=== PATIENT | female | born 1950 | race Caucasian/White ===

== ENCOUNTER 2020-07-07 07:55 | Outpatient (CLI) | payer MEDICARE, SELFPAY ==
--- NOTE | ~2020-07-07 | MM_ITS ---
EXAMINATION: MM screening arelis BI w nacho HISTORY: Screening mammogram TECHNIQUE: Craniocaudal and mediolateral oblique 3-D tomosynthesis images were obtained and synthetic 2-D images were generated. CAD analysis was submitted and interpreted. COMPARISON: 07/06/2019, 06/30/2018, 07/01/2017 bilateral digital screening mammogram examinations BREAST PARENCHYMAL COMPOSITION: There are scattered areas of fibroglandular density. FINDINGS: New opacity is suggested posteriorly in the outer right breast (craniocaudal Tomosynthesis image 29/72). Questionable new opacity in the very posterior mid to upper left breast on MLO view, at posterior mar gin of image. IMPRESSION: 1. Bilateral mammographic asymmetries 2. Bilateral diagnostic mammography is recommended, with ultrasound if required BI-RADS Category 0: Incomplete: Needs additional imaging evaluation. Reviewed, dictated and finalized at location A.
== END 2020-07-07 07:56 | disposition home or self-care (01) ==
LOC: ANHIMG 08:00
PROVIDERS: PCP Physician Assistant; Visit Provider Internal Medicine
DX: Z12.31 Encounter for screening mammogram for malignant neoplasm of breast (principal)
CPT/HCPCS: 77063; 77067

== ENCOUNTER 2022-07-04 01:23 | Day surgery (SDC) | payer MEDICARE, SELFPAY ==
[2022-06-19 14:36] VITALS: BMI 23.3
--- NOTE | 2022-07-03 13:38 | PM.HPGS ---
History of Present Illness History of Present Illness Consent: Risks, benefits, and alternatives have been discussed and questions answered. Patient agrees to proceed with procedure. Chief complaint: positive cologuard Narrative: Edith Valladares is a 71 year old female Referred for colon cancer screening. Recent Cologuard test was positive. Review of Systems Review of Systems: All systems reviewed & are unremarkable except as noted in HPI and below PMFSH Surgical History Surgical History H/O right wrist surgery Family History Family History Mother Cerebrovascular accident, Onset Age: 89 Sibling Breast cancer Social History Social History Smoking status: Never smoker Second hand tobacco smoke exposure: No Smoking end date: 10/13/69 Alcohol intake: current Drinks per week: 5 Substance use: never Substance use type: does not use Living arrangements: alone Spiritual care concerns: No Meds Home Medications and Allergies Home Medications Medication Instructions Recorded Confirmed Type alendronate 70 mg tablet (Fosamax) 70 mg PO MONTHLY 05/10/20 06/19/22 History calcium carbonate 500 mg calcium 500 mg PO DAILY 05/10/20 06/19/22 History (1,250 mg) tablet cholecalciferol (vitamin D3) 25 25 mcg PO DAILY 05/16/20 06/19/22 History mcg (1,000 unit) capsule flaxseed oil 1,000 mg capsule 1,000 mg PO DAILY 05/17/21 06/19/22 History atorvastatin 10 mg tablet 10 mg PO DAILY #90 tabs 04/16/22 06/19/22 Rx loratadine 10 mg tablet (Claritin) 10 mg PO DAILY 06/19/22 06/19/22 History Allergies Allergy/AdvReac Type Severity Reaction Status Date / Time latex Allergy Unknown Rash Verified 07/03/22 13:39 tetanus and diphtheria AdvReac Unknown Vomiting Verified 07/03/22 13:39 toxoids tetanus immune globulin AdvReac Unknown Vomiting Verified 07/03/22 13:39 Exam Resp: Auscultation: clear to auscultation bilaterally Cardio: Rate: regular rate Rhythm: regular rhythm GI: GI Palp: Yes Soft to palpation and No Tenderness to palpation present (GI) Assessment and Plan Assessment and plan (1) Colon cancer screening: Code(s): Z12.11 - Encounter for screening for malignant neoplasm of colon Status: Acute Assessment and Plan: Colonoscopy with possible biopsy or polypectomy or cautery or injection of substances.
[2022-07-04 06:59] VITALS: BP 141/94; PULSE 111; RESP 17; TEMP 36.7; O2SAT 100
[2022-07-04] MEDS: LACTATED RINGERS 1,000 ML 150 ML IV CONT (07:05)
--- NOTE | 2022-07-04 07:45 | P.PNAN_ITS ---
Anes - Initial Pre Proc Eval Procedure: Operation Date: 07/04/22 08:15 Proposed Procedures p Colonoscopy - Josue Elaine MD Date/Time: 07/04/22 07:45 Surgeon: Josue Elaine MD Pre Op Diagnosis: positive cologuard Patient Data Age: 71 Gender: F Height: 1.66 m Weight: 64.5 kg Last Vital Signs Temp 98.1 F 07/04/22 06:59 Pulse 111 H 07/04/22 06:59 Resp 17 07/04/22 06:59 BP 141/94 H 07/04/22 06:59 Pulse Ox 100 07/04/22 06:59 O2 Del Method Room Air 07/04/22 06:59 Allergies Allergy/AdvReac Type Severity Reaction Status Date / Time latex Allergy Unknown Rash Verified 07/03/22 13:39 tetanus and diphtheria AdvReac Unknown Vomiting Verified 07/03/22 13:39 toxoids tetanus immune globulin AdvReac Unknown Vomiting Verified 07/03/22 13:39 Home Medications Medication Instructions Recorded Confirmed Type alendronate 70 mg tablet (Fosamax) 70 mg PO MONTHLY 05/10/20 06/19/22 History calcium carbonate 500 mg calcium 500 mg PO DAILY 05/10/20 06/19/22 History (1,250 mg) tablet cholecalciferol (vitamin D3) 25 25 mcg PO DAILY 05/16/20 06/19/22 History mcg (1,000 unit) capsule flaxseed oil 1,000 mg capsule 1,000 mg PO DAILY 05/17/21 06/19/22 History atorvastatin 10 mg tablet 10 mg PO DAILY #90 tabs 04/16/22 06/19/22 Rx loratadine 10 mg tablet (Claritin) 10 mg PO DAILY 06/19/22 06/19/22 History Patient hx anesthesia problems: none Family hx anesthesia problems: none Results Review: All pre-operative results and documents have been reviewed as part of the pre- operative evaluation. [facility] Surgical History Surgical History H/O right wrist surgery Family History Family History Mother Cerebrovascular accident, Onset Age: 89 Sibling Breast cancer Social History Social History Smoking status: Never smoker Second hand tobacco smoke exposure: No Smoking end date: 10/13/69 Alcohol intake: current Drinks per week: 5 Substance use: never Substance use type: does not use Living arrangements: alone Spiritual care concerns: No Anes - Eval Final PreProcedure Day of Procedure 07/04/22 07:45 Patient weight: normal Heart: regular rate and rhythm Lungs: clear to auscultation Airway: Mallampati scale class II Neurological: alert and oriented Last oral intake: >/= 8 hours ASA classification: II Emergent: no Anesthetic plan: proceed Anesthesia type and monitoring: general GIVS and standard monitoring Results Review: All pre-operative results and documents have been reviewed as part of the pre- operative evaluation. Informed Consent: The patient's anesthetic plan and its attendant risks and benefits were discussed with the patient/family/POA. Questions were solicited and answers provided to the satisfaction of the patient/family/POA.
[2022-07-04 08:33] VITALS: BP 102/53; PULSE 91; RESP 20; O2SAT 100
[2022-07-04 08:43] VITALS: BP 102/53; PULSE 81; RESP 21; O2SAT 100
[2022-07-04 08:53] VITALS: BP 131/62; PULSE 76; RESP 21; O2SAT 100
== END 2022-07-04 08:59 | disposition home or self-care (01) ==
PROVIDERS: PCP Physician Assistant; Visit Provider Internal Medicine Gastroenterology
PROC: 0DJD8ZZ Inspection of Lower Intestinal Tract, Via Natural or Artificial Opening Endoscopic (ICD-10-PCS; CPT 45378; principal; 2022-07-04 08:15)
DX: Z12.11 Encounter for screening for malignant neoplasm of colon (principal); D12.4 Benign neoplasm of descending colon; K62.1 Rectal polyp; R19.5 Other fecal abnormalities; K57.30 Diverticulosis of large intestine without perforation or abscess without bleeding
CPT/HCPCS: 45385; 45380; 88305; J2704; J7120

== ENCOUNTER 2023-11-14 07:50 | Outpatient (CLI) | payer MEDICARE, OTHER, SELFPAY ==
--- NOTE | 2023-11-14 08:07 | ECG_ITS ---
Measurements Intervals [place] Rate: 94 P: 51 [place]: 161 QRS: 7 QRSD: 90 T: 38 QT: 373 QTc: 467 Interpretive Statements SINUS RHYTHM NORMAL ELECTROCARDIOGRAM NO PREVIOUS ECG AVAILABLE FOR COMPARISON Electronically Signed On 11-14-2023 13:49:53 [employer] by Tao Wilkerson M.D.
== END 2023-11-14 07:51 | disposition home or self-care (01) ==
LOC: ANHSURGERY 07:58
PROVIDERS: PCP Physician Assistant; Visit Provider Urology
DX: E78.5 Hyperlipidemia, unspecified (principal); Z01.818 Encounter for other preprocedural examination
CPT/HCPCS: 93005

== ENCOUNTER 2023-11-21 01:14 | Day surgery (SDC) | payer MEDICARE, SELFPAY ==
[2023-11-11 11:48] VITALS: BMI 26.5
--- NOTE | 2023-11-11 11:57 | PC.NURSE ---
PRE-OP INSTRUCTIONS, PLEASE READ CAREFULLY Report to the Outpatient Waiting Room, entrance under the green pavilion located off [facility], at time _0600_ on date _11/21/23_. Planned Procedure Time: _0800_. Time changes happen often and if your time is changed the preop area will call you the afternoon before. - You and your visitor will be asked to self-screen and do not enter if you have any COVID symptoms. - A mask is optional within the hospital at this time. Patients may have clear liquids (water, carbonated beverages, clear teas, apple juice) until 3 hours prior to surgery (0500 AM) with a maximum of 20 ounces. - No food from midnight until time of surgery Take the following medications with a SIP of water the morning of surgery: _NONE_ DO NOT STOP ANY OF YOUR OTHER PRESCRIPTION MEDICATIONS PRIOR TO SURGERY ?EXCEPT THE FOLLOWING Medications to discontinue per ANESTHESIA - _VITAMINS & SUPPLEMENTS 3 DAYS PRIOR TO SURGERY, Date to take last dose 11/17/23_ Please no make-up, nail divehi, hairspray, perfume, deodorant, or body powder the day of surgery. No jewelry (including any body piercings) or valuables the day of surgery, leave them at home. Please take a shower or bath the night before, or the morning of, surgery with an antibacterial soap. Wear comfortable, loose fitting clothing. - Jewelry must be removed prior to entering the operating room. Rings and piercings that are not removed may be cut off. - The hospital will not accept responsibility for valuables. - Please leave all valuables, including medications, at home the day of surgery. If you are going home after surgery, a licensed medical delivery driver must drive you home. - NO public transportation without another adult if you receive anesthesia. - We recommend that an adult stay with you for 24 hours following discharge. - We also recommend that you do not drive, make important decision, drink alcoholic beverages, or take any drugs that were not prescribed by your health care provider for at least 24 hours after your discharge time. Follow any additional instructions given to you from your surgeon. If you or anyone in your household have experienced Covid symptoms in the past week, please notify your surgeon or the nurse liaison at the phone number below for possible testing. Telephone instructions given to _PATIENT_and asked if any additional questions and then verbalized understanding. Patient advised to call surgeon office or pre surgery nurse liaison [phone] if any additional questions.
[2023-11-21] VITALS (8 sets, daily range): BP systolic 111–146; BP diastolic 59–77; PULSE 79–106; RESP 13–20; TEMP 36.3–36.7; O2SAT 99–100
--- NOTE | 2023-11-21 04:39 | PM.IMHP ---
H&P: HPI History of Present Illness Date/Time: 11/21/23 04:39 Chief Complaint: cystocele and occult stress incontinence Narrative: 73-year-old with a symptomatic cystocele. She had stress incontinence until her prolapse worsened. It is documented on urodynamics. She would like to proceed with a procedure to fix both issues Review of Systems Review of Systems: All systems reviewed & are unremarkable except as noted in HPI and below PMFSH Surgical History Surgical History H/O right wrist surgery Family History Family History Mother Cerebrovascular accident, Onset Age: 89 Sibling Breast cancer Social History Social History Smoking status: Former smoker Tobacco type: cigarettes Second hand tobacco smoke exposure: No Smoking end date: 10/13/69 Additional smoking assessment comments: STATES SMOKED IN COLLEGE Alcohol intake: current Drinks per week: 7 Alcohol use details: WINE Substance use: never Substance use type: does not use Current Housing: Decline to Answer Concerned About Future Housing: Decline to Answer Difficulty Paying Gas/Electric Bills: Decline to Answer Difficulty Paying for Meds: Decline to Answer Currently Unemployed: Decline to Answer Education: Decline to Answer Difficulty w/ Childcare or Family Care: Decline to Answer Living arrangements: alone Spiritual care concerns: No Meds Home Medications and Allergies Home Medications Medication Instructions Recorded Confirmed Type cholecalciferol (vitamin D3) 25 25 mcg PO DAILY 05/16/20 11/11/23 History mcg (1,000 unit) capsule multivitamin 1 tablet PO DAILY 05/23/23 11/11/23 History rosuvastatin 5 mg tablet 5 mg PO DAILY #90 tabs 08/14/23 11/11/23 Rx Bifidobacterium infantis 10.5 mg 21 mg PO DAILY 11/11/23 11/11/23 History (10 million cell) chewable tablet (Align) Super Beet 3,000 mg DAILY 11/11/23 11/11/23 History Allergies Allergy/AdvReac Type Severity Reaction Status Date / Time latex Allergy Unknown Rash Verified 11/11/23 11:45 tetanus and diphtheria AdvReac Unknown Vomiting Verified 11/11/23 11:45 toxoids tetanus immune globulin AdvReac Unknown Vomiting Verified 11/11/23 11:45 Exam Narrative: no acute distress normal breathing cystocele to introitus with appropriate apical support urethral mobility Assessment and Plan Assessment and plan (1) Cystocele with prolapse: Code(s): N81.4 - Uterovaginal prolapse, unspecified Status: Acute (2) KERA (stress urinary incontinence, female): Code(s): N39.3 - Stress incontinence (female) (male) Status: Acute Plan cystocele repair and concomitant urethral sling. Understands risks of bleeding, infection, damage to surrounding organs with the urinary tract, inability to resolve prolapse, recurrent prolapse, dyspareunia, postoperative voiding dysfunction including incontinence and retention, vaginal mesh extrusion, urinary tract mesh erosion, dyspareunia, obstructive voiding requiring secondary procedure, hip and leg pain. she agrees to proceed
--- NOTE | 2023-11-21 04:42 | WPDHPUPDATE1 ---
History and Physical Update Update Date/Time: 11/21/23 04:42 History and Physical has been reviewed, including an updated exam of the patient. There are NO changes in the patient's condition. Risks, benefits, and alternatives have been discussed and questions answered. Patient agrees to proceed with procedure.
[2023-11-21] MEDS: LACTATED RINGERS 1,000 ML 30 ML IV CONT ×2 (07:05→09:51)
--- NOTE | 2023-11-21 07:55 | WPDANESEPPF ---
Anes - Initial Pre Proc Eval Procedure: Operation Date: 11/21/23 08:00 Proposed Procedures p Cystocele Repair, - Tyrell Dale MD s Possible Urethral Sling - Tyrell Dale MD Date/Time: 11/21/23 07:55 Surgeon: Tyrell Dale MD Pre Op Diagnosis: midline cystocele, urge incontinence Patient Data Age: 73 Gender: F Height: 1.65 m Weight: 72.27 kg Allergies Allergy/AdvReac Type Severity Reaction Status Date / Time latex Allergy Unknown Rash Verified 11/21/23 07:01 tetanus and diphtheria AdvReac Unknown Vomiting Verified 11/21/23 07:01 toxoids tetanus immune globulin AdvReac Unknown Vomiting Verified 11/21/23 07:01 Home Medications Medication Instructions Recorded Confirmed Type cholecalciferol (vitamin D3) 25 25 mcg PO DAILY 05/16/20 11/21/23 History mcg (1,000 unit) capsule multivitamin 1 tablet PO DAILY 05/23/23 11/21/23 History rosuvastatin 5 mg tablet 5 mg PO DAILY #90 tabs 08/14/23 11/21/23 Rx Bifidobacterium infantis 10.5 mg 21 mg PO DAILY 11/11/23 11/21/23 History (10 million cell) chewable tablet (Align) Super Beet 3,000 mg DAILY 11/11/23 11/21/23 History hydrocodone 5 mg-acetaminophen 325 1 tablet PO Q6H PRN pain #20 tabs 11/21/23 Rx mg tablet Patient hx anesthesia problems: none Family hx anesthesia problems: none Results Review: All pre-operative results and documents have been reviewed as part of the pre-operative evaluation. [facility] Surgical History Surgical History H/O right wrist surgery Family History Family History Mother Cerebrovascular accident, Onset Age: 89 Sibling Breast cancer Social History Social History Smoking status: Former smoker Tobacco type: cigarettes Second hand tobacco smoke exposure: No Smoking end date: 10/13/69 Additional smoking assessment comments: STATES SMOKED IN COLLEGE Alcohol intake: current Drinks per week: 7 Alcohol use details: WINE Substance use: never Substance use type: does not use Current Housing: Decline to Answer Concerned About Future Housing: Decline to Answer Difficulty Paying Gas/Electric Bills: Decline to Answer Difficulty Paying for Meds: Decline to Answer Currently Unemployed: Decline to Answer Education: Decline to Answer Difficulty w/ Childcare or Family Care: Decline to Answer Living arrangements: alone Spiritual care concerns: No Anes - Eval Final PreProcedure Day of Procedure 11/21/23 07:55 Patient weight: normal Heart: regular rate and rhythm Lungs: clear to auscultation Airway: Mallampati scale class II Neurological: alert and oriented Last oral intake: >/= 8 hours ASA classification: III Emergent: no Anesthetic plan: proceed Anesthesia type and monitoring: general LMA and standard monitoring Results Review: All pre-operative results and documents have been reviewed as part of the pre-operative evaluation. Informed Consent: The patient's anesthetic plan and its attendant risks and benefits were discussed with the patient/family/POA. Questions were solicited and answers provided to the satisfaction of the patient/family/POA.
[2023-11-21] MEDS: ceFAZolin 2 GM/D5W 50 ML 2 GM/50 ML BAG IVPB (07:58)
[2023-11-21] MEDS: BUPIVACAINE/EPINEPHRINE 0.5% 30 ML VIAL INFILTRATE (08:13)
--- NOTE | 2023-11-21 08:51 | P.OP_ITS ---
Procedure Note - Detailed Date of Procedure 11/21/23 Pre-op Diagnosis midline cystocele, stress urinary incontinence Post-op Diagnosis Same Procedure Performed Cystocele repair mid urethral sling cystoscopy Surgeon Tyrell Dale MD Anesthesia General Indications This is a female with a cystocele and occult stress urinary incontinence. She desires surgical correction. She understands the risks of bleeding, infection, injury to the urinary tract, recurrence of prolapse, inability to fix her prolapse, damage to the bladder or surrounding organs, fistula formation, vaginal mesh extrusion, urinary tract mesh erosion, obstructive voiding requiring a secondary procedure, hip and leg pain, dyspareunia, inability to improve overactive bladder symptoms. She agrees to proceed. Description of Procedure She was correctly identified. Informed consent obtained. She was brought the operating room. She was given appropriate anesthesia. She was given appropriate perioperative antibiotics. A time-out performed. I placed a [place] retractor. I placed Murillo catheter. I grasped the cystocele with Allis clamps. She had extremely thin vaginal mucosa. I infiltrated subcutaneous tissues with a mixture of local anesthesia mix with epinephrine and saline. I made a midline vaginal incision. I dissected out laterally taking great care not to injure the vaginal wall or the bladder. Of note the tissues were quite thin with very little intervening tissue between the detrusor and the vaginal wall. I also dissected out to the apex. I took great care not to injure the bladder. Without help the dissection and performed a plication cystocele type repair. I used interrupted 0 Vicryl suture. I did this with interrupted sutures. This completed the cystocele repair. I trimmed excess vaginal mucosa. I closed the vaginal mucosa with a running 2-0 Vicryl suture. There was excellent reduction of the cystocele. She had reasonable apical prolapse. She had no rectocele. Again of note she had very thin vaginal tissues. I then turned my attention toward sling. I marked out the site of the inner thigh incisions. I anesthetized the skin and made those incisions. I anesthetized the anterior vaginal wall over the mid urethra. I made a 1 cm incision. I dissected out laterally taking great care not to injure the refilled vaginal wall. I performed cystoscopy at this time to confirm that there was no bladder or urethral violation. I passed the helical trocars. First on the left. Then on the right. I did this from the thigh incision towards the vaginal incision. The sling was connected to the trocars and brought out through the thigh incision. I tensioned the sling appropriately. I cut and the plastic sheaths. I then closed the incision with 2 0 Vicryl. On cystoscopy there is no tumors or surgical artifact. There is no surgical artifact or injury to the bladder urethra. No suture or mesh was seen. There is no tumors. there is mild trabeculations. Both ureters were seen to excrete clear yellow urine. There was no surgical artifact in the urethra. I cut the excess sling material. Close incisions with glue. She was awakened and transferred to the PACU in stable condition. Implants Urethral sling Estimated Blood Loss 10 Drains No Packing No Pathology None sent Complications No immediate complications Condition Stable Disposition PACU
[2023-11-21] MEDS: oxyCODONE HCL (*CRX) 5 MG TAB IR PO (09:31)
== END 2023-11-21 10:45 | disposition home or self-care (01) ==
PROVIDERS: PCP Physician Assistant; Visit Provider Urology
PROC: (CPT 57240; principal; 2023-11-21 08:00)
PROC: (CPT 57240; 2023-11-21 08:00)
DX: N81.11 Cystocele, midline (principal); N39.3 Stress incontinence (female) (male)
CPT/HCPCS: 57240; 57288; 93005; A9270; C1771; J0690; J2405; J2704; J3010; J7030; J7120

== ENCOUNTER 2024-01-29 13:36 | Outpatient (CLI) | payer MEDICARE, SELFPAY ==
[2024-01-29 13:53] LABS: Appearance Urine Clear (Clear); Bacteria Urine 4+ /hpf; Bilirubin Urine Negative (Negative); Blood Urine Negative (Negative); Color Urine Yellow (Yellow); Glucose Urine UA Negative (Negative); Ketones Urine Negative (Negative); Leukocyte Esterase Ur 2+ LEU/UL (Negative); Nitrate Urine Positive (Negative); Non Pathogenic Casts 0-2; Protein Urine Negative (Negative); RBC Urine 0-2 /hpf (0-2); Specific Grav Ur 1.012 (1.001-1.035); Squamous Epithelial Cell Urine Occasional /hpf (Few); Urobilinogen Urine 0.2 mg/dL (<2.0); WBC Urine 51-100 /hpf (0-3); pH Urine 7.5 (5.0-9.0)
[2024-01-29 14:02] LABS: Add Urine Microscopic? YES
== END 2024-01-29 13:37 | disposition home or self-care (01) ==
PROVIDERS: PCP Physician Assistant; Referring Provider Urology; Visit Provider Physician Assistant
DX: R30.0 Dysuria (principal)
CPT/HCPCS: 81001; 87077; 87086; 87088; 87186

== ENCOUNTER 2024-06-19 08:42 | Outpatient (CLI) | payer MEDICARE, SELFPAY ==
--- NOTE | ~2024-06-19 | DEXA_ITS ---
Bone Density Report Name: JULIANA MOSCOSO Age: 73 Sex: Female Ethnicity: White Date of : 1950 Indication: postmenopausal; screening for osteoporosis; parental hip fracture; height loss; history of glucocorticoids; cancer; hysterectomy; Referring Provider: OBI LUNDBERG Study: Bone densitometry was performed. Exam Date: June 19, 2024 Accession number: [id number] Bone Density: Region BMD T-score Z-score Classification AP Spine(L1-L4) 0.903 -1.3 1.0 Osteopenia Femoral Neck (Left) 0.639 -1.9 0.1 Osteopenia Total Hip (Left) 0.802 -1.1 0.6 Osteopenia Femoral Neck (Right) 0.633 -1.9 0.1 Osteopenia Total Hip (Right) 0.789 -1.3 0.5 Osteopenia Total Hip Mean 0.796 -1.2 0.6 Osteopenia World Health Organization criteria for BMD impression classify patients as: Normal (T-score at or above -1.0), Osteopenia (T-score between -1.0 and -2.5), or Osteoporosis (T-score at or below -2.5). 10-year Fracture Risk(1): Major Osteoporotic Fracture 32% Hip Fracture 17% Reported Risk Factors: [place] (), Neck BMD=0.633, BMI=28.0, parental fracture, glucocorticoids (1) FRAX(R) Version 3.08. Fracture probability calculated for an untreated patient. Fracture probability may be lower if the patient has received treatment. Clinical Information Provided by Patient: Parent has had a hip fracture Has taken Glucocorticoids Has used the following medications: Vitamin D Has the following medical conditions: Cancer, Hysterectomy Patient maximum height was 66 Menopause Age: 40 Onset of menses at age 12 Number of children 4 Impression: The patient has low bone mass, based on the Left Femoral Neck T-score. The patient has an estimated ten-year risk of hip fracture of 17% and an estimated ten-year risk of major fracture of 32%, based on the WHO FRAX algorithm. The patient has risk factors, including: parental hip fracture, history of glucocorticoid therapy. Discussion: BONE DENSITY IS LOW AT ONE OR MORE SKELETAL SITES. THE PATIENT'S BMD AND CLINICAL RISK FACTORS CONTRIBUTE TO THIS PATIENT'S HIGH RISK OF FRACTURE. This patient's lowest T-score is low at one or more skeletal sites. It meets the World Health Organization's (WHO) criteria for ?low bone mass? (T-score between -1.0 and -2.5). The patient's 10-year risk of hip fracture and 10 year risk of a major osteoporotic fracture as calculated by FRAX exceeds the threshold where pharmacological therapy is recommended by the National Osteoporosis Foundation (NOF). However, all treatment decisions require clinical judgment and consideration of individual patient factors, including patient preferences, comorbidities, previous drug use, risk factors not captured in the FRAX model (e.g., frailty, falls, vitamin D deficiency, increased bone turnover,
== END 2024-06-19 08:43 | disposition home or self-care (01) ==
LOC: ANHIMG 08:45
PROVIDERS: PCP Nurse Practitioner; Visit Provider Nurse Practitioner
DX: Z78.0 Asymptomatic menopausal state (principal); M85.88 Other specified disorders of bone density and structure, other site; M85.851 Other specified disorders of bone density and structure, right thigh; M85.852 Other specified disorders of bone density and structure, left thigh
CPT/HCPCS: 77080